=== PATIENT | male | born 1990 | race Caucasian/White ===

== ENCOUNTER 2018-10-24 08:58 | Emergency (ER) | payer SELFPAY ==
[~2018-10-24] VITALS: Ht 182.9 cm; Wt 67.3 kg
[2018-10-24 09:06] VITALS: BP 149/77
[2018-10-24] MEDS: KETOROLAC 30 MG/ML VIAL IM ONE (11:15)
[2018-10-24 11:50] VITALS: BP 119/70
== END 2018-10-24 11:50 | disposition home or self-care (01) ==
LOC: MED 08:58
DX: S22.32XA Fracture of one rib, left side, initial encounter for closed fracture (principal); R03.0 Elevated blood-pressure reading, without diagnosis of hypertension; V89.2XXA Person injured in unspecified motor-vehicle accident, traffic, initial encounter; Y93.89 Activity, other specified; Y92.89 Other specified places as the place of occurrence of the external cause; Y99.8 Other external cause status
CPT/HCPCS: 96372; 99283; J1885